=== PATIENT | female | born 1970 | race Hispanic/Latino ===

== ENCOUNTER 2021-12-23 09:57 | Emergency (ER) | payer OTHER ==
[~2021-12-23] VITALS: Ht 162.6 cm; Wt 113.4 kg
[2021-12-23] MEDS ORDERED: MORPHINE 2 MG SYG IVP ONE (10:30)
[2021-12-23] MEDS ORDERED: DIAZEPAM 5 MG/ML 2 ML SYG IVP ONE (10:30)
[2021-12-23 10:43] LABS: EOSINOPHILS % (AUTO) 7.4 % (0.0-8.0); HEMATOCRIT 29.1 % (36-48); LYMPHOCYTES % (AUTO) 18.2 % (21.0-51.0); MEAN CORPUSCULAR HEMOGLOBIN 27.2 pg (27.0-33.0); MEAN CORPUSCULAR HGB CONC 32.3 g/dL (32.0-36.0); MEAN CORPUSCULAR VOLUME 84.3 fL (79-99); MONOCYTES % (AUTO) 7.4 % (3.0-13.0); NEUTROPHILS % (AUTO) 66.3 % (40.0-77.0); PLATELET COUNT (AUTO) 17 K/uL (130-400); RED BLOOD CELL COUNT(AUTO) 3.45 MIL/uL (4.00-5.50); RED CELL DISTRIBUTION WIDTH 19.5 % (11.0-15.5); WHITE BLOOD COUNT (AUTO) 1.5 K/uL (4.8-10.8)
[2021-12-23 10:49] LABS: CREATININE 0.6 mg/dL (0.5-1.5); POTASSIUM 3.7 mmol/L (3.5-5.1)
[2021-12-23 10:54] LABS: ALBUMIN 2.4 g/dL (3.5-5.0); TOTAL PROTEIN, SERUM 5.9 g/dL (6.0-8.3)
[2021-12-23] MEDS ORDERED: IOHEXOL 350 MG/ML 100ML INFUS..BTL IV ONE (12:18)
[2021-12-23 12:51] VITALS: BP 104/48
[2021-12-23] MEDS ORDERED: TRAM50TA4 PO (13:23)
== END 2021-12-23 13:40 | disposition home or self-care (01) ==
LOC: EDH 09:57
DX: K42.9 Umbilical hernia without obstruction or gangrene (principal)
CPT/HCPCS: 99285; 74177; 96374; 96375; 80053; 83690; 85025; 36415; J3360; Q9967

== ENCOUNTER 2023-05-31 05:32 | Day surgery (SDC) | payer OTHER ==
[2023-05-30 12:11] LABS: BASOPHILS # (AUTO) 0.01 K/uL (0.00-0.20); BASOPHILS % (AUTO) 0.3 % (0.0-5.0); EOSINOPHILS # (AUTO) 0.27 K/uL (0.00-0.70); EOSINOPHILS % (AUTO) 9.4 % (0.0-8.0); HEMATOCRIT 33.1 % (36-48); IMMATURE GRANULOCYTE ABSOLUTE 0.04 K/uL (0-1); LYMPHOCYTES # (AUTO) 0.5 K/uL (1.0-4.8); LYMPHOCYTES % (AUTO) 18.8 % (21.0-51.0); MEAN CORPUSCULAR HEMOGLOBIN 29.2 pg (27.0-33.0); MEAN CORPUSCULAR HGB CONC 32.3 g/dL (32.0-36.0); MEAN CORPUSCULAR VOLUME 90.2 fL (79-99); MONOCYTES # (AUTO) 0.3 K/uL (0.1-1.0); MONOCYTES % (AUTO) 10.8 % (3.0-13.0); NEUTROPHILS # (AUTO) 1.7 K/uL (1.8-7.7); NEUTROPHILS % (AUTO) 59.3 % (40.0-77.0); PLATELET COUNT (AUTO) 63 K/uL (130-400); RED BLOOD CELL COUNT(AUTO) 3.67 MIL/uL (4.00-5.50); RED CELL DISTRIBUTION WIDTH 17.3 % (11.0-15.5); WHITE BLOOD COUNT (AUTO) 2.9 K/uL (4.8-10.8)
[2023-05-30 14:04] LABS: BAND NEUTROPHILS % (MANUAL) 3 % (0-2); EOSINOPHILS % (MANUAL) 9 % (1-6); LYMPHOCYTES % (MANUAL) 18 % (22-44); MAN.DIFF COMMENT-IMPRESSION MANUAL DIFFERENTIAL; MONOCYTES % (MANUAL) 10 % (2-9); SEGMENTED NEUTROPHILS % 60 % (40-70); TOTAL CELLS COUNTED 100
[2023-05-30 14:05] LABS: PLATELET MORPHOLOGY COMMENT MARKED DECREASE; WBC MORPHOLOGY TOXIC GRANULATION 2+
[2023-05-31] VITALS (12 sets, daily range): BP systolic 97–111; BP diastolic 35–56; PULSE 73–85; RESP 14–16
[~2023-05-31] VITALS: Ht 162.6 cm; Wt 98.0 kg
[~2023-05-31 05:32] MED LIST: ELTR50TA PO; FOLIC ACID; FURO40TA5 PO; RIFA550T PO; SPIR50TA5 PO
[2023-05-31] MEDS ORDERED: 0.9%NACL 1000ML 1,000 ML IV ONE (06:29)
[2023-05-31] MEDS ORDERED: PROPOFOL 10 MG/ML 20ML VIAL IV ONE ×2 (07:12→07:13)
[2023-05-31] MEDS ORDERED: LIDOCAINE HCL 400MG/20ML VIAL ONE (07:13)
== END 2023-05-31 08:45 | disposition home or self-care (01) ==
LOC: DAH 05:32
PROVIDERS: ATTEND Internal Medicine Gastroenterology
DX: K76.6 Portal hypertension (principal); K74.69 Other cirrhosis of liver; I85.10 Secondary esophageal varices without bleeding; K31.89 Other diseases of stomach and duodenum; K29.50 Unspecified chronic gastritis without bleeding; K21.9 Gastro-esophageal reflux disease without esophagitis; K31.84 Gastroparesis; R60.0 Localized edema; K43.9 Ventral hernia without obstruction or gangrene; K76.0 Fatty (change of) liver, not elsewhere classified; D69.8 Other specified hemorrhagic conditions; D61.818 Other pancytopenia; Z86.010 Personal history of colon polyps; Z98.890 Other specified postprocedural states; Z83.3 Family history of diabetes mellitus; Z80.9 Family history of malignant neoplasm, unspecified
CPT/HCPCS: 84703; 85025; 36415; 43239; J3490; J7030 ×2; J2704; A4620; A4215 ×2; A4223; A7002; A4222; A4221; A4663; A4606